=== PATIENT | female | born 1950 | race Caucasian/White ===

== ENCOUNTER 2019-03-16 12:29 | Day surgery (SDC) | payer MEDICARE, BC ==
[~2019-03-16 12:29] MED LIST: ACETAZOLAMIDE 250 MG PO ONE; FENTANYL 100MCG/2ML SOL ONE; MIDAZOLAM 2 MG/2 ML SOL ONE
[2019-03-16] MEDS: CYCLOPENTOLATE 1% SOL ONE ×3 (12:51→12:59)
[2019-03-16] MEDS: KETOROLAC/HOME 0.5% SOL RIGHTEYE ONE ×3 (12:51→12:59)
[2019-03-16] MEDS: PHENYLEPHRINE HCL 10% OPHTHAL SOL ONE ×3 (12:51→12:58)
[2019-03-16] MEDS: TROPICAMIDE 1% OPHTH SOL ONE ×3 (12:51→12:58)
[2019-03-16] MEDS: MOXIFLOXACIN-HOME SOL RIGHTEYE ONE ×2 (12:52→12:55)
[2019-03-16 12:55] VITALS: PULSE 62; RESP 18; TEMP 97.1; O2SAT 98
[2019-03-16] MEDS: TETRACAINE HCL 0.5 % OPHTH 1 DROP SOL ONE ×2 (12:59→13:54)
[2019-03-16] MEDS ORDERED: BSS W/ 0.5 MG P.F. EPI 1 BOTTLE ONE (13:47)
[2019-03-16] MEDS ORDERED: POVIDONE IODINE 5% SOL ONE (13:48)
[2019-03-16] MEDS ORDERED: LIDOCAINE HCL 2% MPF 10 ML SOL ONE (13:48)
[2019-03-16 14:44] VITALS: BP 181/117
== END 2019-03-16 14:55 | disposition home or self-care (01) | DRG 125 ==
LOC: SURG 12:29
PROVIDERS: ATTEND Ophthalmology
DX: H25.89 Other age-related cataract (principal)
CPT/HCPCS: J2250; J3010; A9270-GY